=== PATIENT | female | born 1990 | race American Indian/Alaskan Native ===

== ENCOUNTER 2019-08-23 11:07 | Emergency (ER) | payer OTHER ==
[2019-08-23 11:13] VITALS: BP 126/82
--- NOTE | 2019-08-23 11:14 | Event Note ---
ED Screening Note Date of service: 08/23/19 Time: 11:13 ED Screening Note: 29 y.o. F. that presents with vaginal bleeding this morning. Patient states she is 6 weeks . LMP 07/14/2019, A1 miscarriage Followed by OBGYN Dr. Oneill. This initial assessment/diagnostic orders/clinical plan/treatment(s) is/are subject to change based on patients health status, clinical progression and re- assessment by fellow clinical providers in the ED. Further treatment and workup at subsequent clinical providers discretion. Patient/guardian urged not to elope from the ED as their condition may be serious if not clinically assessed and managed. Initial orders include: Labs and OB US
[2019-08-23 12:14] LABS: Bilirubin,Urine NEG (Negative); Blood,Urine LG (Negative); Color,Urine Yellow (Yellow); Mucus,Urine 2+ /HPF; Protein,Urine <15 mg/dL mg/dL (Negative); Urobilinogen,Urine < 2.0 mg/dL (<2.0)
[2019-08-23 12:15] LABS: RBC,Urine > 182.0 /HPF (0.0-6.0)
[2019-08-23 12:43] LABS: Basophils % (Auto) 0.6 % (0.0-1.8); Eosinophils # (Auto) 0.2 K/mm3 (0.0-0.4); Eosinophils % (Auto) 3.9 % (0.0-4.3); Hematocrit 35.3 % (30.3-42.9); Hemoglobin 11.1 gm/dl (10.1-14.3); Lymphocytes # (Auto) 2.3 K/mm3 (1.2-5.4); Mean Corpuscular HGB Conc 32 % (30-34); Mean Corpuscular Volume 78 fl (79-97); Monocytes # (Auto) 0.4 K/mm3 (0.0-0.8); Monocytes % (Auto) 7.9 % (0.0-7.3); Platelet Count 385 K/mm3 (140-440); Red Blood Count 4.55 M/mm3 (3.65-5.03); Red Cell Distribution Width 17.4 % (13.2-15.2)
--- NOTE | 2019-08-23 13:03 | Ultrasound Report ---
ULTRASOUND OBSTETRIC INDICATION / CLINICAL INFORMATION: vag bleeding, 6 week preg. TECHNIQUE: Transabdominal and Transvaginal. COMPARISON: None available. FINDINGS: No intrauterine is visualized. The uterus is normal in size and echotexture measuring 9.9 x 6.2 x 6.0 cm. In neutral stripe is thickened measuring 14 mm. ADNEXA: . Right ovary is within normal limits and measures 3.1 x 1.7 x 1.8 cm. Left ovary measures 4. 2 x 2.0 x 2.1 cm and contains a 1.7 x 2.0 x 2.0 cm follicular cyst. FREE FLUID: Trace amount of free pelvic fluid. ADDITIONAL FINDINGS: None. IMPRESSION: 1. No IUP. Please correlate with follow-up beta hCG and ultrasound to distinguish between miscarriage , early nonvisualized IUP or possible nonvisualized ectopic. 2. Thickened endometrial stripe may be secondary to recent miscarriage. 3. 2 cm left ovarian follicular cyst with trace amount of free fluid. Signer Name: Wyatt Burton MD Signed: 08/23/2019 12:59 PM Workstation Name: [id number]
--- NOTE | 2019-08-23 15:31 | Emergency Department Report ---
ED Female HPI - General Chief complaint: Vaginal Bleeding Stated complaint: 6 WKS /BLEEDING Time Seen by Provider: 08/23/19 11:13 Source: patient Mode of arrival: Ambulatory Limitations: No Limitations - History of Present Illness Initial comments: 29-year-old female complaining of vaginal bleeding since yesterday. Patient states that she had a positive home test her last menstrual period was on 07/14/2019 she is 4 para 21 miscarriage her ELECTRODYNAMICIST is Dr. Lily Oneill and she has not seen Dr. Oneill as yet Complaint: vaginal bleeding -: Sudden Quality: cramping Consistency: intermittent Improves with: none Worsens with: none Associated Symptoms: denies other symptoms - Related Data Sexually active: Yes Allergies Allergy/AdvReac Type Severity Reaction Status Date / Time No Known Allergies Allergy Unverified 08/23/19 11:10 ED Review of Systems ROS: Stated complaint: 6 WKS /BLEEDING Other details as noted in HPI Comment: All other systems reviewed and negative Constitutional: no symptoms reported Respiratory: no symptoms reported. denies: cough, SOB with exertion Cardiovascular: denies: chest pain Endocrine: no symptoms reported Gastrointestinal: denies: nausea, vomiting Genitourinary: other (vaginal bleeding) ED Past Medical Hx - Past Medical History Previous Medical History?: No - Surgical History Past Surgical History?: No - Social History Smoking Status: Never Smoker Substance Use Type: None ED Physical Exam - General Limitations: No Limitations General appearance: alert, in no apparent distress - Head Head exam: Present: atraumatic - Eye Eye exam: Present: normal appearance - ENT ENT exam: Present: normal exam - Neck Neck exam: Present: normal inspection - Respiratory Respiratory exam: Present: normal lung sounds bilaterally. Absent: respiratory distress, wheezes, rales - Cardiovascular Cardiovascular Exam: Present: regular rate, normal heart sounds - GI/Abdominal GI/Abdominal exam: Present: soft, normal bowel sounds. Absent: distended, tenderness, guarding, rebound, rigid - Extremities Exam Extremities exam: Present: normal inspection - Back Exam Back exam: Present: normal inspection - Neurological Exam Neurological exam: Present: alert, oriented X3 - Psychiatric Psychiatric exam: Present: normal affect - Skin Skin exam: Present: warm, intact, normal color. Absent: rash ED Course Vital Signs 08/23/19 08/23/19 08/23/19 11:10 14:41 15:46 Temperature 98.2 F Pulse Rate 77 74 Respiratory 18 18 18 Rate Blood Pressure 126/82 O2 Sat by Pulse 100 99 100 Oximetry ED Medical Decision Making - Lab Data Result diagrams: 08/23/19 12:27 - Radiology Data Radiology results: report reviewed US IMPRESSION: 1. No IUP. Please correlate with follow-up beta hCG and ultrasound to distinguish between miscarriage, early nonvisualized IUP or possible nonvisualized ectopic. 2. Thickened endometrial stripe may be secondary to recent miscarriage. 3. 2 cm left ovarian follicular cyst with trace amount of free fluid. - Medical Decision Making 29-year-old female had states she had a positive home test. Today she came to the ER because she started vaginal spotting yesterday and just continued with mild bleeding today. HCG Quant is 49.78. Ultrasound shows no intrauterine . Discussed the findings at length with the patient instructed her of the possibility of missed miscarriage versus ectopic versus early conception patient instructed to follow up with the ELECTRODYNAMICIST by Sunday have a repeat hCG Quant patient also instructed to return to emergency r oom immediately if she develops any severe abdominal pain fever or any worsening symptoms she verbalizes understanding of all instructions patient is safe for discharge to follow up with her doctor Rh positive Critical Care Time: No Critical care attestation.: If time is entered above; I have spent that time in minutes in the direct care of this critically ill patient, excluding procedure time. ED Disposition Clinical Impression: Vaginal bleeding in , Threatened in early Disposition: -01 TO HOME OR SELFCARE Is pt being admited?: No Does the pt Need Aspirin: No Condition: Stable Instructions: Threatened Miscarriage (ED) Additional Instructions: If you develop worsening abdominal pain or fever return to the ER immediately. You must follow up WITH Dr. Lily Oneill with 3 days or sooner to have repeat HCG done. Rest increased oral hydration. Ok to take Tylenol 650 mg by mouth for pain every 4 hours as needed. Referrals: LILY ONEILL MD [Staff Physician] - 3-5 Days PRIMARY CAREMD [Primary Care Provider] - 3-5 Days Time of Disposition: 18:46
== END 2019-08-23 15:42 | disposition home or self-care (01) ==
LOC: ED 11:07
DX: O20.0 Threatened abortion (principal); Z3A.01 Less than 8 weeks gestation of pregnancy
CPT/HCPCS: 36415; 76801; 76802; 76817; 81001; 84702; 85025; 86900; 86901; 87086

== ENCOUNTER 2020-03-22 11:12 | Outpatient (CLI) | payer OTHER ==
[2020-03-22] MEDS ORDERED: LACTATED RINGERS 1,000 ML IV SCH (12:00)
[2020-03-22 12:08] VITALS: BP 117/66
[2020-03-22 12:17] LABS: Bacteria,Urine 4+ /HPF (Negative); Bilirubin,Urine NEG (Negative); Blood,Urine NEG (Negative); Color,Urine Yellow (Yellow); Mucus,Urine 2+ /HPF; Protein,Urine <15 mg/dL mg/dL (Negative); Urobilinogen,Urine < 2.0 mg/dL (<2.0)
[2020-03-22] MEDS ORDERED: ceFAZolin/STERILE WATER 2 GM/20 ML SYRINGE IV NR (14:00)
== END 2020-03-22 14:07 | disposition home or self-care (01) ==
LOC: TRG 11:12 → APU 11:14 → TRG 14:07
PROVIDERS: ATTEND Obstetrics & Gynecology
DX: O36.8130 Decreased fetal movements, third trimester, not applicable or unspecified (principal); O47.03 False labor before 37 completed weeks of gestation, third trimester; Z3A.30 30 weeks gestation of pregnancy
CPT/HCPCS: 59025; 81001; 87076; 87086; 87186; 96361; 96365; J0690; J7120; 96360

== ENCOUNTER 2020-05-24 08:46 | Inpatient (IN) | payer OTHER ==
[2020-05-24] MEDS ORDERED: TERBUTALINE 1 MG/1 ML INJ SUB-Q PRN (09:35)
[2020-05-24] MEDS ORDERED: ONDANSETRON 4 MG/2 ML INJ IV PRN (09:35)
[2020-05-24] MEDS ORDERED: DINOPROSTONE 10 MG VAG SUPP VG ONE (09:35)
[2020-05-24] MEDS ORDERED: miSOPROStol 200 MCG TAB PR PRN (09:35)
[2020-05-24] MEDS ORDERED: fentaNYL 100 MCG/2 ML INJ IV PRN (09:35)
[2020-05-24] MEDS ORDERED: NALOXONE 0.4 MG/1 ML INJ IV PRN (09:35)
[2020-05-24] MEDS ORDERED: LIDOCAINE (2%) 20 MG/1 ML VIAL 20 ML MDV INFILTRATI ONE (09:35)
[2020-05-24] MEDS ORDERED: ACETAMINOPHEN 325 MG TAB PO PRN (09:35)
[2020-05-24] MEDS ORDERED: BUTORPHANOL 2 MG/1 ML INJ IV PRN (09:35)
[2020-05-24] MEDS ORDERED: AMPICILLIN/NS 2 GM/100 ML 2 GM/100 ML BAG IV ONE ×2 (09:35→13:30)
[2020-05-24] MEDS ORDERED: METHYLERGONOVINE MALEATE 0.2 MG/ML VIAL IM PRN (09:35)
[2020-05-24] MEDS ORDERED: NalbUPHINE 10 MG/1 ML INJ IV PRN (09:35)
[2020-05-24] MEDS ORDERED: ePHEDrine SULFATE 50 MG/1 ML INJ IV PRN (09:35)
[2020-05-24] MEDS ORDERED: OXYTOCIN DRIP 30 UNITS/500 ML BAG IV SCH ×2 (10:00)
[2020-05-24 11:54] LABS: Hematocrit 24.4 % (30.3-42.9); Hemoglobin 8.3 gm/dl (10.1-14.3); Mean Corpuscular HGB Conc 34 % (30-34); Platelet Count 353 K/mm3 (140-440); Red Blood Count 3.87 M/mm3 (3.65-5.03)
[2020-05-24 12:01] LABS: Mean Corpuscular Volume 63 fl (79-97); Red Cell Distribution Width 20.7 % (13.2-15.2)
[2020-05-24] MEDS: LACTATED RINGERS 1,000 ML IV SCH ×2 (13:36→21:26)
--- NOTE | 2020-05-24 13:49 | History and Physical Report ---
History of Present Illness Date of examination: 05/24/20 Date of admission: 05/24/20 08:46 Chief complaint: scheduled induction History of present illness: Pt is a 30 year old PAULO 05/29/20 at 39w2d who presents for scheduled induction of labor secondary to obesity. She has a history of DVT on Lovenox 40 mg daily, last dose 05/21/20., anemia with thrombocytosis, GBS positive status, glucose intolerance, genital herpes without lesion or prodrome, and undesired fertility with consent signed 04/13/20. Past History Past Medical History: deep vein thrombosis Past Surgical History: D&C RESERVATION CLERK History: herpes (on suppressions ) Family/Genetic History: diabetes Social history: no significant social history - Obstetrical History Expected Date of Delivery: 05/29/20 Actual Gestation: 39 Week(s) 2 Day(s) : 5 Para: 2 Hx # Term Pregnancies: 2 Number of Pregnancies: 0 Spontaneous Abortions: 2 Induced : 0 Number of Living Children: 2 Medications and Allergies Allergies Allergy/AdvReac Type Severity Reaction Status Date / Time No Known Allergies Allergy Verified 03/22/20 11:41 Active Meds: Active Medications Acetaminophen (Tylenol) 650 mg PO Q4H PRN PRN Reason: Pain, Mild (1-3) Butorphanol Tartrate (Stadol) 2 mg IV Q2H PRN PRN Reason: Pain , Severe (7-10) Ephedrine Sulfate (Ephedrine Sulfate) 10 mg IV Q2M PRN PRN Reason: Hypotension Fentanyl (Sublimaze) 100 mcg IV Q2H PRN PRN Reason: Pain,Severe (7-10) LABOR PAIN Oxytocin/Sodium Chloride (Pitocin/Ns 30 Unit/500ml) 30 units in 500 mls @ 2 mls/hr IV TITR SHEREE; Protocol Lactated Ringer's (Lactated Ringers) 1,000 mls @ 125 mls/hr IV DIRECT SHEREE Last Admin: 05/24/20 13:36 Dose: 125 mls/hr Documented by: Oxytocin/Sodium Chloride (Pitocin/Ns 30 Unit/500ml) 30 units in 500 mls @ 40 mls/hr IV TITR SHEREE; Protocol Stop: 05/24/20 22:29 Ampicillin Sodium (Ampicillin/Ns 1 Gm/50 Ml) 1 gm in 50 mls @ 100 mls/hr IV Q4HR SHEREE; Protocol Ampicillin Sodium (Ampicillin/Ns 2 Gm/100 Ml) 2 gm in 100 mls @ 100 mls/hr IV O NCE ONE; Protocol Stop: 05/24/20 14:29 Methylergonovine Maleate (Methergine) 0.2 mg IM ONCE PRN PRN Reason: Uterine Bleeding Mineral Oil (Mineral Oil) 30 ml PO QHS PRN PRN Reason: Constipation Misoprostol (Cytotec) 800 mcg [place] ONCE PRN PRN Reason: Uterine Bleeding Nalbuphine HCl (Nalbuphine) 10 mg IV Q2H PRN PRN Reason: Pain, Moderate (4-6) Naloxone HCl (Naloxone) 0.1 mg IV Q2MIN PRN PRN Reason: Res Rate </= 8 or 02 SAT < 92% Ondansetron HCl (Zofran) 4 mg IV Q8H PRN PRN Reason: Nausea And Vomiting Terbutaline Sulfate (Brethine) 0.25 mg SUB-Q ONCE PRN PRN Reason: Hyperstimulation/Hypertonicity Review of Systems All systems: negative - Vital Signs Vital signs: Vital Signs Pulse BP 89 130/84 05/24/20 09:49 05/24/20 09:49 Temp Pulse Resp BP Pulse Ox 83 126/87 51 L 05/24/20 13:42 05/24/20 13:42 05/24/20 13:33 - Physical Exam Breasts: Positive: deferred Abdomen: Positive: soft (gravid ) Genitourinary (Female): Positive: normal external genitalia Uterus: Positive: enlarged (gravid ) Extremities: Positive: normal - Obstetrical FHR: auscultation normal Uterine Contraction Monitor Mode: External Cervical Dilatation: 0.5 Uterine Contraction Pattern: Irregular Uterine Tone Measurement Phase: Resting Uterine Contraction Intensity: Mild Results Result Diagrams: 05/24/20 11:20 Abnormal lab results 05/24/20 Range/Units 11:20 Hgb 8.3 L (10.1-14.3) gm/dl Hct 24.4 L (30.3-42.9) % MCV 63 L (79-97) fl MCH 21 L (28-32) pg RDW 20.7 H (13.2-15.2) % All other labs normal. Assessment and Plan A: IUP at 39w2d Obesity H/o Deep Vein Thrombosis on Lovenox 40 mg daily, last dose 05/21/20 Glucose Intolerance Genital Herpes GBS Positive P: Admit to labor and delivery Cervical ripening with cervidil PT, PTT Penicillin for GBS prophylaxis Valtrex for genital herpes suppression
[2020-05-24] MEDS ORDERED: AMPICILLIN/NS 1 GM/50 ML 1 GM/50 ML BAG IV SCH (14:00)
[2020-05-24 18:27] LABS: INR 0.97 (0.87-1.13); Partial Thromboplastin Time 25.2 Sec. (24.2-36.6)
[2020-05-24] MEDS ORDERED: MINERAL OIL 30 ML ORAL LIQD PO PRN (22:00)
[2020-05-25] MEDS ORDERED: LACTATED RINGERS 1000 ML IV SOLN ONE (07:00)
[2020-05-25] MEDS ORDERED: IBUPROFEN 800 MG TAB ONE ×2 (07:00→11:15)
[2020-05-25] MEDS ORDERED: OXYTOCIN/NS 30 UNIT/500 ML DRIP IV ONE (07:00)
[2020-05-25] MEDS ORDERED: OXYTOCIN 10 UNIT/1 ML INJ ONE ×2 (07:00→10:24)
[2020-05-25] MEDS ORDERED: AMPICILLIN ONE (07:00)
[2020-05-25] MEDS ORDERED: fentaNYL 100 MCG/2 ML INJ ONE (07:00)
[2020-05-25] MEDS ORDERED: valACYclovir 500 MG TAB ONE (07:00)
[2020-05-25] MEDS ORDERED: MAGNESIUM SULFATE 40 GM/1000 ML IV ONE ×2 (07:00→10:00)
[2020-05-25] MEDS ORDERED: NS ONE (07:00)
[2020-05-25] MEDS ORDERED: MAGNESIUM SULFATE 40GM/1000ML 0 GM/0 ML BAG IV ONE (09:42)
[2020-05-25] MEDS ORDERED: valACYclovir 500 MG TAB PO SCH (10:00)
[2020-05-25] MEDS ORDERED: ACETAMINOPHEN 325 MG TAB ONE (17:30)
--- NOTE | 2020-05-25 20:43 | Procedure Note ---
OB Delivery Note - Delivery Date of Delivery: 05/25/20 Surgeon: ANDREAS GIBBS Estimated blood loss: 100cc - Vaginal Delivery presentation: vertex Delivery position: OA Delivery monitor: external FHT, external uterine Route of delivery: Delivery placenta: spontaneous Delivery cord: 3 umbilical vessels Anesthesia: none Delivery comments: Patient had a precipitous delivery of liveborn female with apgars of 8/9 and weight of 6lbs 9oz. The delivery was attended by the CNM on labor and delivery. Spontaneous delivery of the placenta intact with a 3VC. No lacerations noted. EBL 100ml. - A at 1 minute: 8 at 5 minutes: 9 Infant Gender: Female (weight 6lbs 9oz)
[2020-05-25] MEDS ORDERED: diphenhydrAMINE 25 MG CAP PO PRN (20:44)
[2020-05-25] MEDS ORDERED: PROMETHAZINE 25 MG RECT SUPP PR PRN (20:44)
[2020-05-25] MEDS ORDERED: MAGNESIUM HYDROXIDE (MOM) ORAL LIQD UDC PO PRN (20:44)
[2020-05-25] MEDS ORDERED: HYDROcodone/ACETAMINOPHEN 5-325 MG TAB PO PRN (20:44)
[2020-05-25] MEDS ORDERED: WITCH HAZEL/ GLYCERIN PAD TP PRN (20:44)
[2020-05-25] MEDS ORDERED: LANOLIN/ZINC/DIMETHICONE (LANSINOH) 7 GM TP PRN (20:44)
[2020-05-25] MEDS ORDERED: ONDANSETRON 4 MG/2 ML INJ IV PRN (20:44)
[2020-05-25] MEDS ORDERED: PROMETHAZINE 25 MG TAB PO PRN (20:44)
[2020-05-25 20:57] LABS: Hematocrit 23.8 % (30.3-42.9); Hemoglobin 7.7 gm/dl (10.1-14.3)
[2020-05-26] MEDS: IBUPROFEN 600 MG TAB PO SCH ×2 (05:45→12:20)
[2020-05-26 09:31] LABS: Hematocrit 22.8 % (30.3-42.9); Hemoglobin 7.1 gm/dl (10.1-14.3)
--- NOTE | 2020-05-26 13:26 | Progress Note ---
Assessment and Plan A: PPD1 s/p Gestational hypertension Afebrile Acute on chronic anemia due to and blood loss P: Ferrous sulfate supplementation Discharge to home today Subjective - Subjective Date of service: 05/26/20 Principal diagnosis: s/p , h/o DVT Interval history: PPD1 s/p Patient reports: appetite normal, voiding normally, pain well controlled, ambulating normally [place]: doing well, bottle feeding Objective - Vital Signs Latest vital signs: Vital Signs Temp Pulse Resp BP BP Pulse Ox 05/26/20 08:25 79 129/87 05/26/20 07:46 98.2 F 70 20 157/100 97 05/26/20 00:00 98 F 68 16 104/79 05/25/20 20:13 98.0 F 71 18 117/53 100 05/25/20 16:00 98.8 F 68 20 121/55 Intake and Output 05/25/20 05/26/20 05/26/20 23:59 07:59 15:59 Intake Total 360 600 Output Total 1500 Balance -1140 600 Intake: Oral 360 Intake, Free Water 600 Output: Urine 1500 Void 1500 Other: Total, Intake Amount 360 Total, Output Amount 600 # Voids Void 2 1 - Exam Lungs: Present: Normal air movement Abdomen: Present: soft. Absent: distention Uterus: Present: firm, fundal height below umbilicus. Absent: bogginess Extremities: Present: normal - Labs Labs: Abnormal lab results 05/25/20 05/26/20 Range/Units Unknown 09:05 Hgb 7.7 L 7.1 L (10.1-14.3) gm/dl Hct 23.8 L 22.8 L (30.3-42.9) %
--- NOTE | 2020-05-26 13:27 | Discharge Summary ---
Providers - Providers Date of Admission: 05/24/20 08:46 Date of discharge: 05/26/20 Attending physician: ZAKIYA VILLA Primary care physician: ZAKIYA VILLA Hospitalization Reason for admission: induction of labor (for obesity), IUP at term Delivery: Episiotomy: none Laceration: none Other procedures: none complications: other (gestational hypertension) Discharge diagnosis: IUP at term delivered Condition at discharge: Good Disposition: DC-01 TO HOME OR SELFCARE Plan - Discharge Medications Prescriptions: Docusate Sodium [Colace] 100 mg PO BID PRN #60 capsule PRN Reason: Constipation Enoxaparin 40 mg SQ QDAY #30 syringe Ferrous Sulfate [Feosol 325 MG tab] 325 mg PO TID #90 tablet Ibuprofen [Motrin] 800 mg PO Q8HR PRN #30 tablet PRN Reason: Pain, Moderate (4-6) - Provider Discharge Summary Activity: routine, no sex for 6 weeks, no heavy lifting 4 weeks, no strenuous exercise Diet: routine Instructions: routine Additional instructions: [] Smoking cessation referral if applicable(refer to patient education folder for contact #) [] Refer to [facility]'s [facility] Booklet Call your doctor immediately for: * Fever > 100.5 * Heavy vaginal bleeding ( >1 pad per hour) * Severe persistent headache * Shortness of breath * Reddened, hot, painful area to leg or breast * Drainage or odor from incision. * Keep incision clean and dry at all times and follow doctor's instructions regarding bathing/showering - Follow up plan Follow up: RUBY GUILLORY CNM [Advanced Practice Nurse] - 14 Days (Please call office to schedule appointment)
[2020-05-26 15:10] VITALS: BP 137/78
[2020-05-26] MEDS ORDERED: ENOXAPARIN 40 MG/0.4 ML INJ SUB-Q SCH (22:00)
== END 2020-05-26 14:30 | disposition home or self-care (01) | DRG 806 ==
LOC: LD 08:46 → OB 05-25 17:09
PROVIDERS: ADMIT Obstetrics & Gynecology; ATTEND Obstetrics & Gynecology
PROC: 3E0P7VZ Introduction of Hormone into Female Reproductive, Via Natural or Artificial Opening (ICD-10-PCS; principal; 2020-05-24)
PROC: 10E0XZZ Delivery of Products of Conception, External Approach (ICD-10-PCS; 2020-05-25)
DX: O62.3 Precipitate labor (principal); O98.82 Other maternal infectious and parasitic diseases complicating childbirth; Z37.0 Single live birth; D62 Acute posthemorrhagic anemia; Z3A.39 39 weeks gestation of pregnancy; O99.824 Streptococcus B carrier state complicating childbirth; Z83.3 Family history of diabetes mellitus; O26.43 Herpes gestationis, third trimester; O13.4 Gestational [pregnancy-induced] hypertension without significant proteinuria, complicating childbirth; O99.02 Anemia complicating childbirth
CPT/HCPCS: 36415; 85014; 85018; 85027; 85610; 85730; 86592; 86850; 86900; 86901; G0378; J0290; J2590; J3010; J3475; J7120; U0003

== ENCOUNTER 2020-09-22 06:40 | Day surgery (SDC) | payer OTHER ==
--- NOTE | 2020-09-21 22:34 | Short Stay Summary ---
Short Stay Documentation Date of service: 09/22/20 Narrative H&P: 30y/o with undesired fertility. The patient is aware of other contraceptive options. She has elected for permanent sterilization. Patient has been reassessed/reevaluated/re-examined. H&P has been reviewed. No interval changes. - History Principal diagnosis: Unwanted fertility Past Medical History: DVT, pulmonary embolism, other (gestational diabetes) Past Surgical History: No surgical history, Other (D&C) Social history: single - Allergies and Medications Current Medications: Allergies No Known Allergies Allergy (Verified 09/15/20 10:52) Home Medications Medication Instructions Recorded Confirmed Last Taken Type No Known Home Medications [No 09/15/20 09/15/20 Unknown History Reported Home Medications] - Physical exam General appearance: no acute distress Integumentary: no rash HEENT: Atraumatic Lungs: Clear to auscultation Breasts: deferred Heart: Regular rate Gastrointestinal: normal Female Genitourinary: deferred Rectal Exam: deferred - Brief post op/procedure progress note Date of procedure: 09/22/20 Pre-op diagnosis: Unwanted fertility Post-op diagnosis: same Procedure: Laparoscopic tubal ligation with Filshie clips Anesthesia: LIZETHA Surgeon: ANDREAS GIBBS Estimated blood loss: minimal Pathology: none Condition: stable - Hospital course Hospital course: The patient was admitted the day of surgery and underwent a laparoscopic bilateral tubal ligation. Please see operative note for details of surgery. Her postoperative course was uneventful. - Disposition Condition at discharge: Good Disposition: DC-01 TO HOME OR SELFCARE Short Stay Discharge Plan Activity: other (Pelvic rest for 1 week) Diet: regular Additional Instructions: Follow-up is not required Follow-up as needed Prescriptions: Ibuprofen [Motrin] 800 mg PO Q8HR PRN #30 tablet PRN Reason: Pain , Severe (7-10) HYDROcodone/APAP 5-325 [[place] 5/325] 1 each PO Q6HR PRN #15 tablet PRN Reason: Pain
[2020-09-22] MEDS ORDERED: BUPIVACAINE/PF (0.5%) 5 MG/1 ML 30 ML VIAL INFILTRATI ONE ×2 (07:34→10:30)
[2020-09-22] MEDS ORDERED: LACTATED RINGERS 1,000 ML IV SCH (08:00)
[2020-09-22] MEDS ORDERED: NEOSTIGMINE 10MG/10 ML INJ MDV ONE (10:00)
[2020-09-22] MEDS ORDERED: GLYCOPYRROLATE 0.4 MG/2 ML INJ ONE (10:00)
[2020-09-22] MEDS ORDERED: ROCURONIUM 50 MG/5 ML INJ IV ONE (10:03)
[2020-09-22] MEDS ORDERED: dexAMETHasone 20 MG/5 ML VIAL ONE (10:03)
[2020-09-22] MEDS ORDERED: ONDANSETRON 4 MG/2 ML INJ ONE (10:03)
[2020-09-22] MEDS ORDERED: fentaNYL 100 MCG/2 ML INJ ONE ×2 (10:03→10:17)
[2020-09-22] MEDS ORDERED: LIDOCAINE MPF (2%) 20 MG/1 ML VIAL 5 ML ONE (10:03)
[2020-09-22] MEDS ORDERED: propofoL 200 MG/20 ML VIAL IV ONE (10:04)
--- NOTE | 2020-09-22 10:36 | Operative Report ---
Operative Report Operative Report: Date of surgery: September 22, 2020 Preoperative diagnosis: Unwanted fertility Postoperative diagnosis: Same as above Procedure: Laparoscopic bilateral tubal ligation with Filshie clips Surgeon: Rani Daigle M.D. Anesthesia: General endotracheal anesthesia Estimated blood loss: Minimal Findings: Normal uterus tubes and ovaries Indication: 30-year-old -0-2-3 with undesired fertility. Procedure: The patient was taken to the operating room and given general endotracheal anesthesia without complication. The patient is prepped and draped in a normal sterile fashion. A bivalve speculum was placed in the patient's vagina and a single-tooth tenaculum was placed on the anterior lip of the cervix .A uterine acorn manipulator was placed, and the bivalve speculum was then removed. Attention was then turned to the patient's abdomen where a 5 mm infraumbilical skin incision was then made. A Veress needle was placed and peritoneal entry was verified water-filled syringe. Insufflation of the peritoneal cavity was performed with CO2 gas. A 5 mm trocar was placed and the laparoscope was then inserted. The patient was then placed in Trendelenburg. A 7 mm suprapubic skin incision was then made. Under direct visualization a 7 mm trocar was then placed. An additional 5 mm left lateral trocar was also placed. General survey of the patient's abdomen revealed normal uterus tubes and ovaries. The fallopian tube was then followed out to the fimbriated end. A Filshie clip was applied to the ampullary portion of the tube this was performed on the contralateral side as well. 2 Filshie clips were applied to each fallopian tube. The trocars were then removed. The pneumoperitoneum was then released. The 5 mm trocar laparoscope was then removed. The skin incisions were then closed with 4-0 Monocryl. The incisions were injected with quarter percent Marcaine. Dressings were applied to the incision. The vaginal instruments were then removed atraumatically. Then successfully extubated and taken to the recovery room. All sponge laps and needle counts were correct x2.
[2020-09-22] MEDS ORDERED: SODIUM CHLORIDE 0.9% IRR 1,500 ML BOTTLE IR ONE (10:42)
[2020-09-22] MEDS ORDERED: HYDROmorphone 1 MG/1 ML INJ ONE (10:54)
[2020-09-22] MEDS ORDERED: ONDANSETRON 4 MG/2 ML INJ IV PRN (10:54)
[2020-09-22] MEDS: HYDROmorphone 1 MG/1 ML INJ IV PRN ×2 (11:00→11:15)
[2020-09-22 12:13] VITALS: BP 121/77
[2020-09-22] MEDS ORDERED: HYDROcodone/ACETAMINOPHEN 5-325 MG TAB PO ONE (12:21)
--- NOTE | 2020-09-22 13:56 | Anesthesia Day of Surgery ---
Anesthesia Day of Surgery - Day of Surgery Patient Examined: Yes Patient H&P Reviewed: Yes Patient is NPO: Yes
--- NOTE | 2020-09-22 13:57 | Post Anesthesia Evaluation ---
- Post Anesthesia Evaluation Patient Participated: Yes Airway Patent: Yes Stable Respiratory Function: Yes Nausea/Vomiting: No Temp > 96.8F: Yes Pain Manageable: Yes Adequeate Hydration: Yes Anesthesia Complications: No Block Receding Appropriately: Not Applicable Patient on Ventilator: No
--- NOTE | 2020-09-22 13:57 | Anesthesia Consultation ---
Anesthesia Consult and Med Hx Date of service: 09/22/20 - Airway Anesthetic Teeth Evaluation: Good ROM Head & Neck: Adequate Mental/Hyoid Distance: Adequate Mallampati Class: Class II Intubation Access Assessment: Good - Pre-Operative Health Status ASA Pre-Surgery Classification: ASA1 Proposed Anesthetic Plan: General - Pulmonary Hx Asthma: No COPD: No Hx Pneumonia: No - Cardiovascular System Hx Hypertension: No - Central Nervous System Hx Seizures: No Hx Psychiatric Problems: No - Endocrine Hx Renal Disease: No Hx End Stage Renal Disease: No Hx Hypothyroidism: No Hx Hyperthyroidism: No - Hematic Hx Anemia: Yes Hx Sickle Cell Disease: No - Other Systems Hx Alcohol Use: Yes (Occas) Hx Cancer: No - Additional Comments Anesthesia Medical History Comments: Late entry-pt was examined preoperatively
== END 2020-09-22 12:40 | disposition home or self-care (01) ==
LOC: OR 06:40
PROVIDERS: ATTEND Obstetrics & Gynecology
DX: Z30.2 Encounter for sterilization (principal); D64.9 Anemia, unspecified; Z79.899 Other long term (current) drug therapy; Z86.718 Personal history of other venous thrombosis and embolism; Z72.89 Other problems related to lifestyle; Z98.890 Other specified postprocedural states
CPT/HCPCS: 58671; 81025; J1100; J1170; J2405; J2704; J2710; J3010; J7120